=== PATIENT | female | born 1970 | race Caucasian/White ===

== ENCOUNTER 2020-09-01 07:29 | Day surgery (SDC) | payer OTHER ==
[~2020-09-01] VITALS: Ht 154.9 cm; Wt 70.6 kg
[2020-09-01] MEDS ORDERED: Aspir 8181 MG PO (08:13)
--- NOTE | 2020-09-01 08:19 | NUR ---
09/01/20 0819 Marika Watters PT AWAKE, ALERT. DRS AWARE OF PT'S PEIRCINGS AND OK TO PROCEED. DR. SMITH AWARE OF PT'S SMALL ABRASION ON RIGHT HAND, MD OK TO PROCEED WITH SURGERY.
[2020-10-22] MEDS ORDERED: Acetaminophen650 M1 PO (13:19)
[2020-10-22] MEDS ORDERED: Acerola C500 MG PO (13:20)
[2020-10-22] MEDS ORDERED: VITAMIN D310 MC5 PO (13:20)
[2020-10-22] MEDS ORDERED: B COMPLEX FORM0.4 MG PO (13:20)
[2020-10-22] MEDS ORDERED: GABA300 PO (13:21)
[2020-10-22] MEDS ORDERED: MELO7.5 PO (13:21)
[2020-10-22] MEDS ORDERED: Hair, Skin & N1 EACH PO (13:21)
[2020-10-22] MEDS ORDERED: L-Lysine500 M1 PO (13:21)
[2020-10-22] MEDS ORDERED: TOCO1000 PO (13:23)
[2020-10-22] MEDS ORDERED: VALACYCLOVIR1000 M1 PO (13:23)
[2020-10-22] MEDS ORDERED: DHEA25 M1 PO (13:23)
== END 2020-09-01 09:10 | disposition home or self-care (01) ==
LOC: ORSCSDS 07:29
PROVIDERS: Orthopaedic Surgery
PROC: 01N50ZZ Release Median Nerve, Open Approach (ICD-10-PCS; principal; 2020-09-01 08:30)
DX: G56.01 Carpal tunnel syndrome, right upper limb (principal); Z79.82 Long term (current) use of aspirin; Z79.899 Other long term (current) drug therapy
CPT/HCPCS: J2250; J2704; J3010; J7120

== ENCOUNTER 2020-11-05 11:04 | Day surgery (SDC) | payer OTHER ==
[~2020-11-05] VITALS: Ht 154.9 cm; Wt 68.0 kg
[~2020-11-05 11:04] MED LIST: Acerola C500 MG PO; Acetaminophen650 M1 PO; Aspir 8181 MG PO; B COMPLEX FORM0.4 MG PO; DHEA25 M1 PO; GABA300 PO; Hair, Skin & N1 EACH PO; L-Lysine500 M1 PO; MELO7.5 PO; TOCO1000 PO; VALACYCLOVIR1000 M1 PO; VITAMIN D310 MC5 PO
--- NOTE | 2020-11-05 11:42 | NUR ---
11/05/20 Angelica Montgomery 1 TRY RIGHT HAND VALVE
--- NOTE | 2020-11-05 12:25 | NUR ---
11/05/20 1225 HALI STARK UTILIZED IN PROCEDURE.
== END 2020-11-05 13:19 | disposition home or self-care (01) ==
LOC: ORSCSDS 11:04
PROVIDERS: Student in an Organized Health Care Education/Training Program
PROC: 0DBN8ZX Excision of Sigmoid Colon, Via Natural or Artificial Opening Endoscopic, Diagnostic (ICD-10-PCS; principal; 2020-11-05 12:30)
DX: Z12.11 Encounter for screening for malignant neoplasm of colon (principal); D12.5 Benign neoplasm of sigmoid colon; K57.30 Diverticulosis of large intestine without perforation or abscess without bleeding; K64.8 Other hemorrhoids; K64.4 Residual hemorrhoidal skin tags
CPT/HCPCS: 88305; J2250; J2704; J7120

== ENCOUNTER → 2025-01-24 | Outpatient (CLI) | payer OTHER ==
[~2025-01-24] MED LIST changes: +BEET ROOT-TART1 EACH PO; +METAMUCIL POWD798 GM PO; +OMEGA-3 FISH O1 EAC6 PO; +PROGESTERONE100 MG PO; +ROSU5 PO; +UBID100 PO; +[UNRECOGNIZED DRUG - OTHER] TOP
[2025-01-26 07:14] LABS: Stool Occult Bld Immuno 1 Positive (NEGATIVE)
[2025-01-26 10:37] LABS: C DIFFICILE DNA NEGATIVE (Negative)
== END ==
LOC: LAB SHORT 20:13 → LAB 20:13
PROVIDERS: Physician Assistant
DX: R19.7 Diarrhea, unspecified (principal)
CPT/HCPCS: 82274; 87493

== ENCOUNTER → 2025-03-06 | Outpatient (CLI) | payer OTHER ==
[2025-03-07 15:39] LABS: C DIFFICILE DNA NEGATIVE (Negative)
== END ==
LOC: LAB 20:30 → LAB SHORT 20:30
PROVIDERS: Student in an Organized Health Care Education/Training Program
DX: R19.7 Diarrhea, unspecified (principal)
CPT/HCPCS: 87015; 87045; 87046; 87205; 87493; 87899